=== PATIENT | female | born 2000 | race Caucasian/White ===

== ENCOUNTER 2021-12-19 13:17 | Outpatient (CLI) | payer BC, SELFPAY ==
[2021-12-19 17:59] LABS: Hepatitis B Surface Antigen* Negative (Negative)
[2021-12-19 18:09] LABS: HIV 1/2/P24 Combo Screen* Negative (Negative)
[2021-12-19 18:17] LABS: Hepatitis C Virus Antibody* Negative (Negative)
[2021-12-19 20:37] LABS: Chlamydia DNA Amplified* NOT DETECTED (No Detected); GC DNA Amplified* NOT DETECTED (No Detected)
[2021-12-22 00:58] LABS: Rapid Plasma Reagin (RPR) Non Reactive (Non Reactive)
[2021-12-22 04:43] LABS: Varicella-Zoster Virus Ab, IgG 90.3 IV
[2021-12-22 05:06] LABS: Rubella Antibody IgG 16.5 IU/mL
== END 2021-12-19 13:18 | disposition home or self-care (01) ==
PROVIDERS: Visit Provider Advanced Practice Midwife
DX: Z34.91 Encounter for supervision of normal pregnancy, unspecified, first trimester (principal)
CPT/HCPCS: 76817; 86592; 86703; 86762; 86787; 86803; 86850; 86900; 86901; 87086; 87340; 87491; 87591

== ENCOUNTER 2021-12-29 12:05 | Outpatient (CLI) | payer BC, SELFPAY ==
--- NOTE | 2021-12-29 12:11 | CRLHL7_ITS ---
For Patients: As a result of the Century Cures Act, medical imaging exams and procedure reports are released immediately into your electronic medical record. You may view this report before your referring provider. If you have questions, please contact your health care provider. INDICATION: FOLLOW UP RIGHT ADNEXAL AREA IN EARLY COMPARISON: 12/19/2021 TECHNIQUE: Real-time rubio-scale imaging of the pelvis was performed. FINDINGS: Single living intrauterine is present with crown-rump length 4.2 cm corresponding to an 11 week 1 day gestation. heart rate 167 beats per minute. Decidual reaction is more homogeneous on today`s exam. Corpus luteal cyst left ovary noted. No subchorionic hemorrhage. Similar appearance of right adnexal heterogeneity without excess pelvic free fluid or ectopic . IMPRESSION: Single living IUP measuring 11 weeks 1 day. Stable appearance of the right adnexa. Dictated by Anup Yates MD @ 12/29/2021 1:15:21 PM (Electronically Signed)
== END 2021-12-29 12:06 | disposition home or self-care (01) ==
LOC: US 12:06
PROVIDERS: Visit Provider Advanced Practice Midwife
DX: O00.81 Other ectopic pregnancy with intrauterine pregnancy (principal); Z3A.11 11 weeks gestation of pregnancy
CPT/HCPCS: 76816; 76817

== ENCOUNTER 2022-03-02 13:56 | Outpatient (CLI) | payer BC, SELFPAY ==
--- NOTE | 2022-03-02 14:00 | CRLHL7_ITS ---
For Patients: As a result of the Century Cures Act, medical imaging exams and procedure reports are released immediately into your electronic medical record. You may view this report before your referring provider. If you have questions, please contact your health care provider. INDICATION: Evaluate anatomy. COMPARISON: 12/29/2021 TECHNIQUE: Real time rubio scale imaging of the fetus was performed as well as color Doppler analysis of the umbilical vessels. FINDINGS: Sonographic imaging demonstrates a single living intrauterine gestation. Fetus demonstrates a regular cardiac rate of 152 beats per minute. Fetus has a vertex position. The placenta lies fundal without evidence of placenta previa. The edge of the placenta is located 8.2 cm from the internal cervical os. Amniotic fluid volume appears normal. Single deepest vertical pocket: 4.3 cm. The cervix is closed and measures 3.9 cm in length. The composite ultrasound gestational age is calculated at 20 weeks 2 days with an estimated sonographic due date of 07/18/2022. The estimated weight is 360 grams which lies at the 60th %. The following biometric measurements were obtained: Biparietal diameter: 4.7 cm/20 weeks 1 day 42nd% Head circumference: 17.2 cm/19 weeks 5 days 20th% Abdominal circumference: 16.3 cm/21 weeks 2 days 78th% Femur length: 3.2 cm/19 weeks 6 days 26th% The HC/AC ratio measures: 1.06 range (1.07-1.25) On anatomic survey, there is a normal appearance of the cerebral ventricles, cavum septi pellucidi, cisterna magna and cerebellum. The nose, lips, and facial profile appear normal. The cervical, thoracic and lumbar spine are well visualized and appear normal. There is a normal four-chamber heart view and the left and right ventricular outflow tracts appear normal. The diaphragm and stomach appear normal. The kidneys and bladder also appear normal. There is a normal three-vessel cord and cord insertion site. The four extremities appear normal. IMPRESSION: Normal OB ultrasound exam with concordance of clinical and sonographic dating. No intrinsic abnormalities noted on anatomic survey. Dictated by Anup Yates MD @ 03/05/2022 10:13:50 AM (Electronically Signed)
== END 2022-03-02 13:57 | disposition home or self-care (01) ==
LOC: US 13:57
PROVIDERS: Visit Provider Advanced Practice Midwife
DX: Z34.92 Encounter for supervision of normal pregnancy, unspecified, second trimester (principal); Z3A.09 9 weeks gestation of pregnancy
CPT/HCPCS: 76805

== ENCOUNTER 2022-05-04 10:48 | Outpatient (CLI) | payer BC, SELFPAY ==
[2022-05-06 03:14] LABS: Rapid Plasma Reagin (RPR) Non Reactive (Non Reactive)
== END 2022-05-04 10:49 | disposition home or self-care (01) ==
PROVIDERS: Visit Provider Advanced Practice Midwife
DX: Z34.83 Encounter for supervision of other normal pregnancy, third trimester (principal); Z3A.29 29 weeks gestation of pregnancy
CPT/HCPCS: 86592; 86850

== ENCOUNTER 2022-06-28 11:29 | Outpatient (CLI) | payer BC, SELFPAY ==
[2022-06-29 15:45] LABS: Strep B DNA Probe NEGATIVE (Negative)
[2022-06-30 20:15] LABS: Strep B Pen/Amox Allergy No
== END 2022-06-28 11:30 | disposition home or self-care (01) ==
LOC: NFLDREF 11:29
PROVIDERS: Visit Provider Advanced Practice Midwife
DX: Z34.83 Encounter for supervision of other normal pregnancy, third trimester (principal); Z3A.37 37 weeks gestation of pregnancy
CPT/HCPCS: 87081; 87653

== ENCOUNTER 2022-07-06 04:08 | Inpatient (IN) | payer BC, MEDICAID, SELFPAY ==
[2022-07-05 23:08] VITALS: BP 106/69; PULSE 93; RESP 16; TEMP 36.6
[2022-07-05 23:16] VITALS: PULSE 134; O2SAT 79
[2022-07-05 23:17] VITALS: PULSE 91; O2SAT 96
[2022-07-05 23:24] VITALS: BMI 29.2
[2022-07-06] VITALS (21 sets, daily range): BP systolic 101–117; BP diastolic 55–75; PULSE 70–109; RESP 16–18; TEMP 36.3–37.1; O2SAT 96–97
--- NOTE | 2022-07-06 05:13 | P.LDBA_ITS ---
Subjective History of Present Illness Narrative: Gloria is being admitted to Labor and Delivery for spontaneous active labor. She is a 22 year old at weeks gestation. She arrived to triage last evening, has been observed in hospital and not admitted until now due to slow change. Currently uncomfortable with contractions and planning to get in the tub. H&P completed 06/29/22 by Yefri Ramirez CNM OB PROBLEM LIST 1. Blood Type A Negative NEEDS RhoGAM at 28 weeks given 05/04/22 NEEDS RhoGAM pp 2. Varicella non-immune Needs vaccine pp 3. Suspicious round area rt. adnexa separate from rt. ovary 2.6cm Unchanged with follow-up US. No concern for ectopic. Not noted on anatomy scan, consider follow-up OB - Problem Based A/P Additional Plan (1) Pain during labor: Status: Acute (2) Rh negative status during : Status: Acute (3) 38 weeks gestation of : Status: Acute Plan ASSESSMENT:? 22yo at 38.2 weeks gestation? complicated by:?A negative blood type Labor type: spontaneous, active labor? Category 1 FHR pattern.?? Labor complicated by: none? GBS negative? ? PLAN:? 1. Routine intrapartum cares as ordered. Continue with expectant management? 2. Monitoring per policy, intermittent? 3. Planning unmedicated . Desires water . Consent signed. Hep C negative. Candidate for analgesia of choice.?? 4. Patient encouraged to reposition and ambulate to promote physiologic labor and .? 5. Anticipate ? Delivery/Labor/Induction Plan Plan: expectant management OB Exam Physical Exam Vital signs: Temp Pulse Resp BP Pulse Ox 98 F 103 H 16 102/69 96 07/05/22 23:08 07/06/22 03:33 07/05/22 23:08 07/06/22 03:33 07/05/22 23:17 Narrative: Labor admit exam? Vitals Reviewed? Psychiatric:? Alert and oriented x3? HEENT:? Normocephalic, atraumatic? Neck:? Supple?? Lungs:? Clear to auscultation bilaterally? Heart:? Regular rate and rhythm, no murmur, rub or gallop? Abdomen:? Soft, nontender, and gravid. Vertex by Todd's, confirmed with cervi kilo exam per RN.? Extremities:? No edema or erythema? Detailed Labor and Delivery Exam Patient Gravid: Yes Dilation (cm): 6 Effacement (%): 80 Contraction Frequency: 2-3 Tachysystole: No Contraction intensity: Strong/Firm Fetus (Single) Station: -1 Amniotic Membrane Status: intact Heart Rate Baseline: 140 Monitor Accelerations: Present Monitor Decelerations: None Custodial Variability: Moderate (6-25)
[2022-07-06 05:20] LABS: SARS PCR* Negative SARS-CoV-2 (Negative)
[2022-07-06] MEDS: OXYTOCIN 10 UNIT/ML INJ IM (08:36)
--- NOTE | 2022-07-06 09:05 | PM.OBPRCVD ---
Procedure Delivery date: 07/06/22 Procedure Done: Global Procedure Details: Gloria is a 22 year-old G3 now P3 admitted on 07/05/22 at 38 Weeks, 1 Days gestation for active labor. Cervical exam on admission was 6 cm/80 % effaced/-1 station with membranes intact in vertex presentation.? AROM?occurred on 07/06/22 at 0642 with clear fluid. Labor Analgesia:? none Pitocin:? No, PP only for AMTSL Labor onset:? 399 Complete: 821 Pushing:? 816, spontaneous heart tones during second stage were: WNL per doppler Tootie had been laboring in and out of the waterbirth tub, and had gotten out for a little bit when she started to feel pushy, and returned to the tub. She was supported by her Jonathan. She labored in multiple positions in the tub and began spontaneously pushing. After several pushes, Gloria stated she did not feel like anything was happening and did not feel the urge to push. Cervical check identified an anterior cervical lip, which was manually reduced during the next two contractions. Gloria pushed with good effort and delivered her baby boy in semi-reclined position in the tub. At 0831 a viable male delivered in vertex OA presentation over an intact perineum via spontaneous vaginal?delivery in the tub. ?Infant was placed on maternal abdomen. ?Cord was clamped and cut after pulsations ceased. Nose and mouth were bulb suctioned.?Infant weight pending. ? 8 at 1 minute and 9 at 5 minutes. ?Shoulder dystocia: no. ?Nuchal cord: no. Placenta delivered spontaneously and complete at 0848 with a 3 vessel cord. Mother and were stable after?delivery. Lacerations:? Labial abrasions only, not bleeding, not repaired. Blood loss: 450 mL. Blood loss measurement type:? EBL Sponge and needles counts are correct. Intrapartal Events: Labor Augmentation (AROM) Delivery augmentation: rupture of membranes Delivery monitor: external FHT (doppler) Route of delivery: (waterbirth) Laceration description: Superficial (labial abrasions, not bleeding, not repaired) Estimated blood loss (mL): 450 Anesthesia type: None Disposition: floor [place] Infant Gender: Male presentation: vertex Placental Delivery Description: Spontaneous Cord Description: 3 Vessels OB Vag Delivery Procedures Additional Procedures ECV: No Cook Catheter Insertion: No NST: No D&C: No Laceration Repair: No Tubal Ligation : No Other: No
[2022-07-06] MEDS: ACETAMINOPHEN 500 MG TABLET 1000 MG PO ×2 (09:27→18:19)
[2022-07-06] MEDS: IBUPROFEN 600 MG TABLET PO (13:14)
[2022-07-07 05:00] VITALS: BP 91/63; PULSE 76; RESP 16; TEMP 36.7; O2SAT 97
[2022-07-07 06:50] LABS: Hemoglobin* 12.8 gm/dL (12.0-16.0)
[2022-07-07 08:28] VITALS: BP 102/62; PULSE 70; RESP 16; TEMP 36.8; O2SAT 98
[2022-07-07] MEDS: DOCUSATE SODIUM 100 MG CAPSULE PO (08:44)
--- NOTE | 2022-07-07 09:29 | P.DS_ITS ---
DS: Providers Provider Date Seen: 07/07/22 Date of admission: 07/06/22 04:08 Primary care physician: Not a Local Provider Admitting Clinician: Caroline Hansen CNM Attending Physician on discharge: Sarah Ramirez CNM Date of Discharge: 07/07/22 DS: Diagnosis Discharge Diagnosis (1) state: Status: Acute (2) Lactating mother: Status: Acute Exam Narrative: Exam Narrative: Objective: VSS, afebrile GENERAL APPEARANCE: ?normal affect, alert, no distress MOOD: ?appropriate HEENT: normocephalic, neck supple, full ROM CHEST: ?Symmetrical chest wall movement. ?Normal respiratory effort. ?Clear to auscultation HEART: ?regular rate and rhythm ABDOMEN: ?soft, non-tender. Uterine fundus is firm, at Umbilicus, Midline and is appropriate for the stage of recovery. ?Bowel sounds present. PERINEUM: Deferred per pt, no lacerations or repairs EXTREMITIES: ?normal and no edema Const: Vital Signs, click to edit/add: Vital Signs - 24 hr 07/06/22 09:35 07/06/22 09:49 07/06/22 10:05 Temperature Pulse Rate 96 86 81 Pulse Rate [Pulse Oximeter] Respiratory Rate Blood Pressure 107/55 L 101/59 L 117/62 Blood Pressure [Le ft Arm] Pulse Oximetry Oxygen Delivery [facility] 07/06/22 10:19 07/06/22 10:34 07/06/22 09:35 Temperature 98.6 F Pulse Rate 85 81 Pulse Rate [Pulse Oximeter] Respiratory Rate 18 Blood Pressure 110/60 104/56 L Blood Pressure [Le ft Arm] Pulse Oximetry Oxygen Delivery [facility] 07/06/22 09:48 07/06/22 10:04 07/06/22 10:20 Temperature 98.1 F 98.3 F Pulse Rate Pulse Rate [Pulse Oximeter] Respiratory Rate 16 16 16 Blood Pressure Blood Pressure [Le ft Arm] Pulse Oximetry [facility] 07/06/22 10:34 07/06/22 13:17 07/06/22 18:21 Temperature 98.3 F 97.7 F 97.4 F L Pulse Rate Pulse Rate [Pulse Oximeter] 85 70 Respiratory Rate 16 16 16 Blood Pressure Blood Pressure [Le ft Arm] 105/75 101/64 Pulse Oximetry 96 96 Oxygen Delivery Dc thod Room Air Room Air 07/06/22 20:55 07/06/22 23:40 07/07/22 05:00 Temperature 98.6 F 98.0 F 98.1 F Pulse Rate Pulse Rate [Pulse Oximeter] 70 78 76 Respiratory Rate 16 16 16 Blood Pressure Blood Pressure [Le ft Arm] 111/65 104/63 91/63 Pulse Oximetry 97 97 97 Oxygen Delivery Me thod Room Air Room Air Room Air 07/07/22 08:28 Temperature 98.2 F Pulse Rate Pulse Rate [Pulse Oximeter] 70 Respiratory Rate 16 Blood Pressure Blood Pressure [Le ft Arm] 102/62 Pulse Oximetry 98 Oxygen Delivery Me thod Room Air Documenting provider has reviewed patient's vital signs: yes OB - DS: Summary Hospital Course Hospital Course: Subjective: Gloria is a 22 y.o. G3 now P3 who was admitted to L & D for active labor. ?She had an uncomplicated spontaneous vaginal delivery. The patient feels well. ?The pain is well controlled with current medications. ?She has no new complaints. ?She is breast feeding and reports things are going well.? the patient has done well.? Vitals have been stable.? She has remained afebrile.? Has a good appetite, is tolerating a general diet. ?She is voiding without difficulty.? She is passing gas and has not had a bowel movement.? She is ambulating and denies any dizziness.? Has a small amount of rubra lochia. ?She is planning natural family planning for prevention. Declines any medications to go home with. Assessment: G3 now P3 Lactating Mother plan: Discharge home with baby. Follow up in 2 weeks and 6 weeks in clinic. , may follow up with if needed Peripartum Data delivery method: Vaginal Laceration description: Superficial (Abrasions, not repaired) complications: none Infant Gender: Male (Miles) Discharge Plan: Home Time Spent with Patient Time attestation: Total time spent providing and/or coordinating discharge services: Discharge Plan Discharge Disposition: Home, Self-Care Date of Admission: 07/06/22 04:08 Attending Provider on Discharge: Sarah Ramirez Primary Care Provider: Provider,Not a Local Condition: Stable Anticipated Discharge Date/Time: 07/07/22 09:36 Discharge Medications: Continued with DHA-Folic Acid 400-32.5 mcg-mg tablet,chewable 1 tab PO DAILY Discharge Orders: Discharge Order (Routine); Ordered 07/07/22 Ordered By: Sarah Ramirez Patient Education: OB Over the Counter Medication Information, OB Vaginal/Breast Feeding Additional Instructions: 2 & 6 week visit Activity Level: No Restrictions Discharge Diet: Regular Follow Up Appointments: [facility] [Provider Group] Provider,Not a Local [Primary Care Provider] - Forms: [employer] Info Instructions
== END 2022-07-07 11:00 | disposition home or self-care (01) | DRG 560 ==
LOC: OB OUT 07-18 10:26
PROVIDERS: Advanced Practice Midwife; Admitting Provider Advanced Practice Midwife; Visit Provider Advanced Practice Midwife
DX: O36.0930 Maternal care for other rhesus isoimmunization, third trimester, not applicable or unspecified (principal); Z67.91 Unspecified blood type, Rh negative; Z3A.38 38 weeks gestation of pregnancy; Z37.0 Single live birth
CPT/HCPCS: 36415; 85018; 87635; 99213; A9270; J2590

== ENCOUNTER 2022-10-29 11:02 | Outpatient (CLI) | payer BC, SELFPAY | END 2022-10-29 11:03 | disposition home or self-care (01) | PROVIDERS: Visit Provider Obstetrics & Gynecology | DX: R10.9 Unspecified abdominal pain (principal); N91.2 Amenorrhea, unspecified | CPT/HCPCS: 80076; 82150; 83690 ==

== ENCOUNTER 2022-11-02 09:07 | Outpatient (CLI) | payer BC, SELFPAY ==
--- NOTE | 2022-11-02 09:15 | CRLHL7_ITS ---
For Patients: As a result of the Century Cures Act, medical imaging exams and procedure reports are released immediately into your electronic medical record. You may view this report before your referring provider. If you have questions, please contact your health care provider. CLINICAL HISTORY: Pain TECHNIQUE: 2D rubio scale ultrasound. In addition color Doppler and spectral Doppler analysis was performed of the pelvis using a transabdominal and transvaginal approach. FINDINGS: On transvaginal imaging, the myometrium has a normal uniform echotexture. The uterus measures 7.9 x 3.6 x 5.7 cm. The endometrial lining appears normal and measures 6 mm in thickness. The right ovary measures 3.8 x 2.1 x 2.8 cm in size and the left ovary measures 3.7 x 1.9 x 2.6 cm. The ovaries demonstrate normal arterial and venous blood flow on color Doppler and spectral Doppler analysis. There are no suspicious fluid collections within the cul-de-sac. IMPRESSION: Normal ovaries. No adnexal mass, excess free-fluid or torsion. Dictated by Anup Yates MD @ 11/02/2022 2:18:25 PM (Electronically Signed)
--- NOTE | 2022-11-02 09:15 | CRLHL7_ITS ---
For Patients: As a result of the Century Cures Act, medical imaging exams and procedure reports are released immediately into your electronic medical record. You may view this report before your referring provider. If you have questions, please contact your health care provider. INDICATION: Pain TECHNIQUE: Ultrasound abdomen limited. Sonographic images of the right upper quadrant were obtained using rubio-scale and color Doppler images. COMPARISON: None FINDINGS: Liver: Normal in size and echotexture. No masses. No intrahepatic biliary dilatation. Gallbladder: No stones or sludge. Normal wall thickness. No pericholecystic fluid. Common bile duct: 3.6. Pancreas: Normal. Right kidney: 10.2 cm. Normal echotexture and cortex. No masses, stones, or hydronephrosis. Vasculature: Proximal abdominal aorta and IVC are normal. IMPRESSION: Unremarkable right upper quadrant ultrasound. Dictated by Anup Gomez MD @ 11/02/2022 10:32:48 AM (Electronically Signed)
== END 2022-11-02 09:08 | disposition home or self-care (01) ==
LOC: US 09:09
PROVIDERS: Visit Provider Obstetrics & Gynecology
DX: R10.9 Unspecified abdominal pain (principal); R10.2 Pelvic and perineal pain
CPT/HCPCS: 76705; 76830; 76856; 93976

== ENCOUNTER 2023-06-20 08:38 | Outpatient (CLI) | payer BC, SELFPAY ==
--- NOTE | 2023-06-20 08:45 | CRLHL7_ITS ---
For Patients: As a result of the Cures Act, medical imaging exams and procedure reports are released immediately into your electronic medical record. You may view this report before your referring provider. If you have questions, please contact your health care provider. INDICATION: First trimester scan, establish dates. COMPARISON: None. TECHNIQUE: Real-time rubio-scale imaging of the pelvis was performed. FINDINGS: Sonographic imaging demonstrates a single living intrauterine gestation. The embryo demonstrates a regular cardiac rate measuring 154 beats per minute. The embryo`s crown-rump length measurement of 1.6 cm corresponds to a gestational age of 8 weeks 0 days with a sonographic due date of 01.30.24. There is a normal-appearing yolk sac. There are no gross abnormalities noted within the embryo at this early state of development. The gestational sac has a normal appearance. There is no evidence of a perigestational hemorrhage. The amount of fluid within the sac appears appropriate for gestational age. The cervix is closed. The myometrium appears normal. The ovaries are of normal size. Corpus luteal cyst left ovary. There are no suspicious fluid collections noted in the cul-de-sac. IMPRESSION: Normal first trimester OB ultrasound exam. Gestational age calculated at 8 weeks 0 days with a sonographic due date of 01.30.24. Dictated by Anup Yates MD @ 06/20/2023 10:21:22 AM (Electronically Signed)
== END 2023-06-20 08:39 | disposition home or self-care (01) ==
PROVIDERS: Visit Provider Advanced Practice Midwife
DX: Z34.91 Encounter for supervision of normal pregnancy, unspecified, first trimester (principal); Z3A.08 8 weeks gestation of pregnancy
CPT/HCPCS: 76817; 86703; 86706; 86803; 86850; 86900; 86901; 87086; 87340

== ENCOUNTER 2023-06-20 09:50 | Outpatient (CLI) | payer BC, SELFPAY | END 2023-06-20 09:51 | disposition home or self-care (01) | PROVIDERS: Visit Provider Advanced Practice Midwife | DX: Z34.81 Encounter for supervision of other normal pregnancy, first trimester (principal) | CPT/HCPCS: 86592; 86703; 86704; 86706; 86762; 86787; 86803; 86850; 86900; 86901; 87086; 87340 ==

== ENCOUNTER 2023-08-14 10:13 | Outpatient (CLI) | payer BC, SELFPAY | END 2023-08-14 10:14 | disposition home or self-care (01) | LOC: NFLDREF 10:15 | PROVIDERS: Visit Provider Advanced Practice Midwife | DX: Z34.92 Encounter for supervision of normal pregnancy, unspecified, second trimester (principal); Z3A.16 16 weeks gestation of pregnancy | CPT/HCPCS: 87086 ==

== ENCOUNTER 2023-09-10 13:52 | Outpatient (CLI) | payer BC, SELFPAY ==
--- NOTE | 2023-09-10 14:00 | US_ITS ---
Patient: JULI Castillo TOLEDO Facility:?[facility] Patient ID:?[id number] Site Patient ID:?[id number]. Site :?[id number] Study:?US-OB Pelvis OB > 14wks-09/10/2023 3:18:45 PM Ordering Physician:Terri Rondon Final Report: OB ULTRASOUND LMP: 04/21/2023. ANNABELLE by LMP: 01/26/2024. GA: 20 w, 2 d. . P: 3. INDICATION: Supervision of normal . COMPARISON: 06/20/2023. position: Multiple positions. Cervix: Visualized. Technique: Transabdominal. Length of closed cervix: 3.3 cm. Placenta/cord: Posterior. Technique: Transabdominal. Placenta tip to internal OS: 8.2 cm. Umbilical Cord: 3-vessel cord. Placenta insertion: Central. Amniotic Fluid: 4.5 cm SDP SURVEY: Observed Structures Cerebellum: Yes. 2.03 cm; 20 w 5 d. Cisterna Magna: Yes. 4.7 mm. Nuchal Fold: Yes. 3.7 mm. Lateral Ventricle: Yes. 5.8 mm. CSP: Yes. Midline Falx: Yes. Choroid Plexus: Yes. Spine: Yes. Stomach: Yes. Abd Cord Insertion: Yes. Urinary Bladder: Yes. Kidneys: Yes. Diaphragm: Yes. Nose/lips: Yes. Orbital view: Yes. Profile: Yes. Upper Extremities: Yes. Lower Extremities: Yes. Hands: Yes. Feet: Yes. Four-Chamber Heart: Yes. LVOT: Yes. RVOT: Yes. 3VV: Yes. 3VTV: Yes. BPD: 4.7 cm. 20 w, 2 d, 48 percent. HC: 17.6 cm. 20 w, 1 d, 33 percent. AC: 16.0 cm. 21 w, 0 d, 70 percent. FL: 3.4 cm. 20 w, 3 d, 50 percent. FL/AC ratio: 21.00 percent. HC/AC ratio: 1.10. Heart rate: 155 beats per minute. age by this US: 20 w 4 d. ANNABELLE by this US: 01/24/2024. EFW: 372.4 g. Weight: 0 lbs, 13 oz. Percentile by ANNABELLE: 70th percent. IMPRESSION: 1. Measurements are consistent with dates. Good interval growth since the prior exam. 2. Normal anatomic survey. Randy Velasquez M.D. Body/Diagnostic Radiologist [email or web address] D& Transcribed: 2:30 p.m. SP/Dictated by: Randy Velasquez MD @ 09/11/2023 9:53:00 AM Signed by:Delano Velasquez MD @09/11/2023 4:47:35 PM (Electronic Signature)
== END 2023-09-10 13:53 | disposition home or self-care (01) ==
LOC: US 13:53
PROVIDERS: Visit Provider Advanced Practice Midwife
DX: Z34.92 Encounter for supervision of normal pregnancy, unspecified, second trimester (principal); Z3A.20 20 weeks gestation of pregnancy
CPT/HCPCS: 76805

== ENCOUNTER 2023-11-06 10:32 | Outpatient (CLI) | payer BC, SELFPAY | END 2023-11-06 10:33 | disposition home or self-care (01) | LOC: NFLDREF 10:33 | PROVIDERS: Visit Provider Advanced Practice Midwife | DX: Z34.83 Encounter for supervision of other normal pregnancy, third trimester (principal); Z67.11 Type A blood, Rh negative | CPT/HCPCS: 86592; 86850; J2791 ==

== ENCOUNTER 2023-11-13 10:38 | Emergency (ER) | payer BC, SELFPAY ==
[2023-11-13 10:42] VITALS: BP 103/65; PULSE 82; RESP 18; TEMP 36.9; O2SAT 98; BMI 29.1
--- OUTSIDE RECORDS SUMMARY | 2023-11-13 11:26 | XMS_ITS | Clinical Summary ---
Author Organization [facility] Address [address], [place] [address] Care Team Providers Care Semiautomatic Taper Operator Name Role Phone Clinician, Not Found MD Primary Care Provider Un available Source Comments You are receiving this document as you are listed as the primary care provider,follow-up provider, or the patient has been referred to you for consultation.This is in compliance with the Medicare and[facility] EHR Incentive Program,which states Providers who transition their patient to another setting of careor provider of care or refers their patient to another provider of care shouldprovide summary care record for each transition of care or referral. [facility] Allergies No known active allergies Medications No known medications Active Problems No known active problems Family History Medical History Relation Name Comments Cancer Maternal Grandfather Clotting Disorder Paternal Grandfather Cancer Paternal Grandmother Relation Name Status Comments Maternal Grandfather Paternal Grandfather Paternal Grandmother Social History Tobacco Use Types Packs/Day Years Used Date Smoking Tobacco: Never Alcohol Use Standard Drinks/Week Comments No 0 (1 standard drink = 0.6 oz pur e alcohol) Sex and Gender Information Value Date Recorded Sex Assigned at Not on file Gender Identity Not on file Sexual Orientation Not on file Last Filed Vital Signs Vital Sign Reading Time Taken Comments Blood Pressure - - Pulse - - Temperature - - Respiratory Rate - - Oxygen Saturation - - Inhaled Oxygen Concentration - - Weight 74.4 kg (164 lb) 11/26/2013 10:03 AM CDT Height 181.6 cm (5' 11.5) 11/26/2013 10:03 AM C DT Body Mass Index 22.55 11/26/2013 10:03 AM CDT Plan of Treatment Health Maintenance Due Date Last Done Comments Cervical Cancer Screening Due 1998 Chlamydia 1998 Hep C Screening (Preventive Services) 1998 HPV Vaccine (1 - 3-dose series) 2013 HIV Screening (Preventive Services) 2014 Adult Preventive Visit 02/26/2016 DTaP/Tdap/Td (1 - Tdap) 2017 HepB (1) 2017 COVID-19 Vaccine (1 - 2022-2 4 season) 2023 Influenza (Season Ended) 2024 Zoster/Shingles (1 of 2) 02/26/2048 HepA Aged Out No longer eligi ble based on patient's age to complete this topic Hib Aged Out No longer eligi ble based on patient's age to complete this topic IPV (Polio) Aged Out No longer eligi ble based on patient's age to complete this topic MCV4 Aged Out No longer eligi ble based on patient's age to complete this topic Pneumococcal Aged Out No longer eligi ble based on patient's age to complete this topic Care Teams Semiautomatic Taper Operator Relationship Specialty Start Date End Date Clinician, Not Found, [place] [address] PCP - General 06/08/13
--- OUTSIDE RECORDS SUMMARY | 2023-11-13 11:26 | XMS_ITS | Clinical Summary ---
Author Organization [employer] [facility] Address [place], [place] [address] Care Team Providers Care Compliance Paralegal Name Role Phone Clinic, No Pcp Or Primary Care Provider Unavaila ble Allergies No known active allergies Medications Medication Sig Dispensed Refills Start Date End Date Status PNV no.95/ferrous fum/folic ac (PNV CMB#95-FERROUS FUMARATE-FA ORAL) Take 1 Tablet by mouth once daily. Active ondansetron (ZOFRAN ODT) 4 mg disintegrating tabletIndications:Nause a Place 2 Tablets (8 mg) on the tongue every 8 hours if needed for Nausea/Vomiting . 10 Tablet 01/19/2023 Active Active Problems Problem Noted Date Diagnosed Date Right tubal withou t intrauterine --possible, unable to r/o 11/13/2021 Gastroenteritis 11/13/2021 Acute appendicitis--ruled out 11/12/2021 Less than 8 weeks gestation of 022 Type A blood, Rh negative 10/24/2018 39 weeks gestation of 10/22/2018 Full-term premature rupture of membranes 019 Anemia 10/22/2018 Positive GBS test 10/22/2018 Overweight 04/30/2018 Sprain of lateral collateral ligament of knee Resolved Problems Problem Noted Date Diagnosed Date Resolved Date complication before 10/14/2018 10/24/2018 Immunizations Name Administration Dates Next Due AMB INFLUENZA, IIV4 (AGE=>6M OS) MDV (Flu Clinic Only) 04/30/2018 DTaP 01/07/2004, 0,1998,07/07,1998 HIB PRP-T (ActHIB,Hiberix) 06/23/1999,,1998,05/02 Hepatitis A (Adult) 04/18/2010 Hepatitis A (Peds) 04/08/2013,04/18/2010 Hepatitis A (Peds),Unspecified 04/18/2010 Hepatitis B (Peds) 03/15/1999,1998, 998 Hepatitis B, Unspecified 03/15/1999,1998,1 07/03/1997 Inactivated Polio Vaccine 01/07/2004,,1998,05/02 Influenza Virus, Unspecified 04/09/2007,05/03/20 03 Influenza, IIV4 04/30/2018 MMR 01/07/2004,03/29/1999 Meningococcal Vaccine (Menactra) 02/03/2016,03/22 Tdap 08/06/2018,04/18/2010 Family History Medical History Relation Name Comments Good Health Brother 1 Good Health Brother 2 Good Health Brother 3 Good Health Brother 4 Good Health Daughter Good Health Father Lung cancer Maternal Grandfather Good Health Maternal Grandmother Good Health Mother Lung cancer Paternal Grandfather Cancer-breast Paternal Grandmother Good Health Sister 1 Good Health Sister 2 Relation Name Status Comments Brother 1 Alive Brother 2 Alive Brother 3 Alive Brother 4 Alive Daughter Alive Father Alive Maternal Grandfather (Age 65) Barby ng cancer Maternal Grandmother Alive Mother Alive Paternal Grandfather (Age 70) barby ng cancer Paternal Grandmother (Age 55) Br east cancer Sister 1 Alive Sister 2 Alive Social History Tobacco Use Types Packs/Day Years Used Date Smoking Tobacco: Never Smokeless Tobacco: Never Alcohol Use Standard Drinks/Week Comments Not Currently 0 (1 standard drink = 0.6 oz pur e alcohol) PHQ-2 Answer Date Recorded PHQ-2 TOTAL SCORE 0 05/23/2020 Social Connections Answer Date Recorded Frequency of Communication with Friends and Fami ly Not on file 05/20/2021 Financial Resource Strain Answer Date R ecorded Difficulty of Paying Living Expenses Not on file 05/20/2021 Difficulty of Paying Living Expenses Not on file 05/20/2021 Sex and Gender Information Value Date Recorded Sex Assigned at Not on file Gender Identity Not on file Sexual Orientation Not on file Obstetrics History Para Term AB IAB SAB Ectopic Multiple Livin g Live Births 3 2 2 2 2 Date Outcome GA Total Labor Labor/2nd/3rd Weight Sex Type Anes PTL Dot A1 A5 Name Clin 2018 Term 39w 1d 18h 00m 0h 02m 3.37 kg (7 lb 7 oz) F Vag Epidur al Livin g 8 9 BG JULI BANUELOS Complications:None Delivery Location:[facility]) Comments:15 min of pus aleksandra 2020 Term F Vag Livin g Last Filed Vital Signs Vital Sign Reading Time Taken Comments Blood Pressure 120/64 01/19/2023 9:31 PM CDT Pulse 69 01/19/2023 9:31 PM CDT Temperature 36.8 ??C (98.2 ??F) 01/19/2023 9:31 PM CD T Respiratory Rate 18 01/19/2023 9:31 PM CDT Oxygen Saturation 97% 01/19/2023 9:31 PM CDT Inhaled Oxygen Concentration - - Weight 77.1 kg (170 lb) 01/19/2023 9:31 PM CDT Height 177.8 cm (5' 10) 01/19/2023 9:31 PM CDT Body Mass Index 24.39 01/19/2023 9:31 PM CDT Plan of Treatment Health Maintenance Due Date Last Done Comments HPV series for age 9-26 (1 - 3-dose series) 2013 Depression screening for age 12+ 05/23/2021 05/23/2020 BMI (ht and wt on same day) for age 18+ 03/15/2022 03/15/2021, 05/23/2020 COVID-19 vaccine series ( season) 2023 Pap test for age 21-65 05/23/2023 05/23/2020 Influenza for age 9-49 01/19/2024 8, 04/30/2018, 04/09/2007, Additional history exists Tetanus booster 08/06/2028 08/06/2018, 04/18/2010 Tdap Completed 08/06/2018, 04/18/2010 HIV for age 15-65 Completed 05/23/2020 Hepatitis C screening for age 18-79 Completed 05/23/2020 Pneumococcal series for age 6-64 Aged Out No longer eligible based on patient's age to complete this topic Procedures Procedure Name Priority Date/Time Associated Diagnosis Comments ANTI HIV 1/2 Routine 05/23/2020 11:30 AM EVENT MARKETING ASSISTANT Encounter for supervision of low-risk , antepartum ANTI HCV Routine 05/23/2020 11:30 AM EVENT MARKETING ASSISTANT Encounter for supervision of low-risk , antepartum CONTROLS DESIGN ENGINEER THIN PREP PAP SCREEN IMAGED Routine 05/23/2020 10:55 AM EVENT MARKETING ASSISTANT Cervical cancer screening from Last 3 Months or Most Recently Relevant to Health Maintenance Results * ANTI HCV (05/23/2020 11:30 AM EVENT MARKETING ASSISTANT) HEPATITIS C ANTIBODY Non-React audra Non-React audra 05/23/2020 7:27 PM EVENT MARKETING ASSISTANT [facility] Comment:Antibodies to HCV no t detected; does not exclude the possibility of exposure to HCV. Blood BLOOD SPECIMEN / Unknown Venipuncture / Unknown 05/23/2020 11:30 AM EVENT MARKETING ASSISTANT 05/23/2020 11:32 AM EVENT MARKETING ASSISTANT Michelle Lin MD [facility] [address] [place] [address], * ANTI HIV 1/2 (05/23/2020 11:30 AM EVENT MARKETING ASSISTANT) HIV-1/HIV-2 ANTIBODY Non-Reacti ve Non-Reacti ve 05/23/2020 7:47 PM EVENT MARKETING ASSISTANT [facility] Comment:HIV-1 p24 and HIV-1/ HIV-2 Ab not detected. Blood BLOOD SPECIMEN / Unknown Venipuncture / Unknown 05/23/2020 11:30 AM EVENT MARKETING ASSISTANT 05/23/2020 11:32 AM EVENT MARKETING ASSISTANT Michelle Lin MD SEND OUTS [facility] LABORAT[facility]-CENTRAL LABORATORY [address] [place] [address], * CONTROLS DESIGN ENGINEER THIN PREP PAP SCREEN IMAGED (05/23/2020 10:55 AM EVENT MARKETING ASSISTANT) Case Report Gynecologic Cytology Report ? Case: [id number] ? Authorizing Provider: ??Michelle Lin MD ??Collected: ? 05/23/2020 1055 ? Ordering Location: ? [facility] ?Received: ?05/23/2020 1214 ? Clinic ? First Screen: ?Gallo Hanson ? Specimen: ?CONTROLS DESIGN ENGINEER ThinPrep Vial Screening, Cervical ? 05/31/2020 12:20 PM EVENT MARKETING ASSISTANT [employer] [facility] LABORAT[facility]-C ENTRAL LABORATORY INTERPRETATION/ RESULT NEGATIVE FOR INTRAEPITHELIAL LESION OR MALIGNANCY (NIL) (none) 05/31/2020 12:20 PM EVENT MARKETING ASSISTANT [facility] LAB[facility] IMEN ADEQUACY Satisfactory for evaluation No endocervical component seen in a patient 05/31/2020 12:20 PM EVENT MARKETING ASSISTANT [facility]- ENTRAL LABORATORY HPV REQUEST HPV if ASCUS 05/31/2020 12:20 PM EVENT MARKETING ASSISTANT [facility] Date of LMP 03/04/2020 05/31/2020 12:20 PM EVENT MARKETING ASSISTANT [facility] Last Pap Date none 05/31/2020 12:20 PM EVENT MARKETING ASSISTANT [facility] Last Pap Result First Pap/Unknown 12:20 PM EVENT MARKETING ASSISTANT [facility] Abnormal Pap or [place] Bx in last 5 years No 05/31/2020 12:20 PM EVENT MARKETING ASSISTANT [facility]- ENTRAL LAB[facility]ATORY Menstrual Status 05/31/2020 12:20 PM EVENT MARKETING ASSISTANT [facility] EN[facility] [place] Bx Done Today No 05/31/2020 12:20 PM EVENT MARKETING ASSISTANT [facility] Additional Information None given 05/31/2020 12:20 PM EVENT MARKETING ASSISTANT [facility] Comment: Cytology is screened at [facility], Central Laboratory - [address] [facility] [address], [place] [address] and [facility] - [address] [place] [place] [address] [facility] - [address] [place] [address] [id number] [facility] - [address] [place] [address] Automated Review Successful 05/31/2020 12:20 PM EVENT MARKETING ASSISTANT [facility] Comment:Specimen processed s uccessfully by automated sand tester device, ThinPrep Imaging System, [employer] Note The pap test is a screening technique, not a diagnostic procedure. It is used primarily to screen for squamous cancers and precursor lesions. Published studies have shown that it is subject to both false negative and false positive results. The pap test should not be used as the sole means to diagnose or exclude pre-malignant and malignant lesions. 05/31/2020 12:20 PM EVENT MARKETING ASSISTANT [facility] LABORATORY-C ENTRAL LABORATORY Other (Cervical) Non-Blood / Unknown 05/23/2020 10:55 AM EVENT MARKETING ASSISTANT 05/23/2020 12:14 PM EVENT MARKETING ASSISTANT Michelle Lin MD PATHOLOGY/[facility]-CENTRAL LABORATORY [address] [place] [address], from Last 3 Months or Most Recently Relevant to Health Maintenance Advance Directives * Full Code (Latest Code Status on File) Date Activated Date Inactivated Comments 11/12/2021 6:04 PM 11/13/2021 7:59 PM Question Answer Comments Code Status Discussion: Reviewed Preferences * Full Code Date Activated Date Inactivated Comments 10/22/2018 2:32 PM 10/25/2018 5:10 PM Care Teams Compliance Paralegal Relationship Specialty Start Date End Date Clinic, No Pcp Or . PCP - General 01/19/23
--- NOTE | 2023-11-13 11:27 | ED_ITS ---
HPI - Fall General Chief Complaint: Fall/Minor Trauma Stated Complaint: Fall, 29wks Time Seen by Provider: 11/13/23 10:49 History of Present Illness HPI Narrative: This 23-year-old female is 29 weeks and states that she fell down some stairs about 4 hours prior to arrival. She landed on her right buttock and did not hit her abdomen. She did not hit her head or have loss of consciousness. She called into the OBGYN clinic and was instructed to come here for evaluation. She states that she did not feel the baby move for a few hours but subsequently has been feeling activity of the baby. She denies any significant personal injury but is mostly concerned about her baby in the womb. Related Data Home Medications ?Medication ?Instructions ?Recorded ?Confirmed vits no.126-ferrous fum tab PO DAILY 06/20/23 11/06/23 28 mg iron-folic acid 800 mcg tablet (Classic ) Allergies Allergy/AdvReac Type Severity Reaction Status Date / Time No Known Allergies Allergy Unknown Verified 11/06/23 09:45 Review of Systems Status of ROS: Reports: 10 or more systems reviewed and unremarkable except as noted in History and below Narrative: Constitutional: No fevers, no weight gain or loss. Eyes: No discharge. No vision changes. HENT: No congestion, no sore throat, no ear pain. Cardiovascular: No chest pain, no palpitations. Respiratory: No shortness of breath, no wheezes, no cough. Gastrointestinal: No abdominal pain, no vomiting, no diarrhea. Genitourinary: No dysuria, no hematuria. Musculoskeletal: Normal range of motion. Skin: No rashes, no pruritis. Neurological: No dizziness, weakness, sensory change, speech change. Endo/Heme/Allergies: No bruising or bleeding. No polydipsia. Pysch: no suicidality, no anxiety, no insomnia. All other systems reviewed and are negative. [facility] Medical History (Updated 11/13/23 @ 11:36 by Morris Hines MD) Abdominal pain ?R10.9 - Unspecified abdominal pain (ICD-10) Temporary low platelet count ?D69.6 - Thrombocytopenia, unspecified (ICD-10) Normal spontaneous vaginal delivery ?O80 - Encounter for full-term uncomplicated delivery (ICD-10) Surgical History H/O knee surgery ?Z98.890 - Other specified postprocedural states (ICD-10) Guffey teeth extracted ?K08.409 - Partial loss of teeth, unspecified cause, unspecified class (ICD- 10) Family History Maternal Grandfather Lung cancer Paternal Grandfather Lung cancer Social History (Updated 06/20/23 @ 11:36 by Kandis Welsh CNM) Narrative: SOCIAL Education: some college Work: stay at home, 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: Jonathan, - teacher high school Lives with: and kids Pets: none Abuse: Denies past/present Special Diet: Denies Ok with a blood transfusion: yes Culture or gnosticism beliefs: denies RISK FACTORS Exercise Times/wk: walks Depression/Anxiety: denies AMANDA: 0 PHQ 9: 2 Seat Belt Use: Routinely Smoking: Denies past/present Alcohol/day: Denies while Caffeine: 2 cups per day Drug Use: Denies past/present Chicken Pox: Yes as a child MRSA: Denies What is your current living situation?: I presently have a place to live Problems where you live: no known problems In the past 12 months, utilities in danger of being shut off: no In past 12 months, lack of transportation kept you from medical appts, meetings, work, or getting things needed for daily living: no In the past 12 mos, have been you worried that your food would run out before you had money to buy more?: never true In the past 12 mos, the food you bought just didn't last and you didn't have money to buy more?: never true Smoking Status: Never smoker How often does anyone, including family, friends and others, physically hurt you : never How often does anyone, including family, friends and others, insult or talk down to you: never How often does anyone, including family, friends and others, threaten you with harm: never How often does anyone, including family, friends and others, scream or curse at you: never Little interest or pleasure in doing things: not at all Feeling down, depressed, or hopeless: not at all Exam Narrative: Exam Narrative: Constitutional: Well-developed, well-nourished, no acute distress. HEENT: Normocephalic, atraumatic. Neck: Normal range of motion. Nontender. Supple. Heart: Regular. No murmurs. Normal rate. Intact distal pulses. Lungs: Clear to auscultation. No chest discomfort. No wheezes, rhonchi, or rales. Abdomen: Normal bowel sounds. Nontender. No rebound tenderness. Gravid. Genitalia: Deferred. Back: No midline tenderness. Normal range of motion. Extremities: Normal range of motion. No injury. Skin: Intact. No rash. Warm. No erythema or pallor. Neurologic: No altered sensation. No weakness. Alert and oriented. Psychiatric: No suicidality. No anxiety or depression. No insomnia. Nursing notes and vitals signs are reviewed. Const: Vital Signs, click to edit/add: Vital Signs - 24 hr 11/13/23 10:42 Temperature 98.4 F Pulse Rate [Right Pulse Oximeter] 82 Respiratory Rate 18 Blood Pressure [Ri ght Upper Arm] 103/65 Pulse Oximetry 98 Oxygen Delivery Me thod Room Air Course Vital Signs Vital signs: Initial Vital Signs Temperature 98.4 F 11/13/23 10:42 Temperature Source Oral 11/13/23 10:42 Pulse Rate 82 11/13/23 10:42 Pulse Rhythm Regular 11/13/23 10:42 Pulse Strength 3+ Normal 11/13/23 10:42 Respiratory Rate 18 11/13/23 10:42 Blood Pressure 103/65 11/13/23 10:42 Blood Pressure Mean 77 11/13/23 10:42 Pulse Oximetry 98 11/13/23 10:42 Oxygen Delivery Method Room Air 11/13/23 10:42 Vital Signs Temperature 98.4 F 11/13/23 10:42 Pulse Rate 82 11/13/23 10:42 Respiratory Rate 18 11/13/23 10:42 Blood Pressure 103/65 11/13/23 10:42 Pulse Oximetry 98 11/13/23 10:42 Oxygen Delivery Method Room Air 11/13/23 10:42 Temperature 98.4 F 11/13/23 10:42 Pulse Rate 82 11/13/23 10:42 Respiratory Rate 18 11/13/23 10:42 Blood Pressure 103/65 11/13/23 10:42 Pulse Oximetry 98 11/13/23 10:42 Oxygen Delivery Method Room Air 11/13/23 10:42 MDM - Fall MDM Narrative Medical decision making narrative: This patient comes in for evaluation of her 3rd trimester after falling about 4 hours prior to arrival. She fell onto her right buttock and did not hit her abdomen. She was able to get up and ambulate normally. She did call in to OBGYN clinic and was recommended to come here for evaluation. The patient arrives with normal vital signs and really is in no discomfort. Her primary goal is to have her baby checked further. She is feeling movement in her abdomen. I did use bedside ultrasound to observe her and saw normal anatomy and activity. heart tones are in normal range. There is good amniotic fluid present. This was all reassuring to the patient. She is okay to be discharged home to resume current plans. I advised her to use Tylenol if needed. Discharge Plan Discharge Clinical Impression: Fall, Third trimester Patient Disposition: Home, Self-Care Condition: Stable Additional Instructions: Continue current plans. Follow up with MD as scheduled or as needed. Return if worsening. Prescriptions: No Action Classic 28 mg iron- 800 mcg tablet PO DAILY Follow Up/Referrals: Provider,Not a Local [Primary Care Provider] - Stand Alone Forms: [employer] Info Instructions Procedures Ultrasound Other exam #1: Anatomical areas examined: 3rd trimester Indications: The mother fell but no injury to her abdomen Description/findings: Normal anatomy and activity. Heart rate is in normal range. Normal amniotic fluid. Impression: Normal 3rd trimester .
== END 2023-11-13 12:00 | disposition home or self-care (01) ==
PROVIDERS: Emergency Provider Emergency Medicine Emergency Medical Services
DX: S39.92XA Unspecified injury of lower back, initial encounter (principal); W10.9XXA Fall (on) (from) unspecified stairs and steps, initial encounter; Z3A.29 29 weeks gestation of pregnancy
CPT/HCPCS: 76815; 99283; 99284

== ENCOUNTER 2023-11-20 10:33 | Outpatient (CLI) | payer BC, SELFPAY ==
--- OUTSIDE RECORDS SUMMARY | 2023-11-20 10:36 | XMS_ITS | Clinical Summary ---
Author Organization [employer] [facility] Address [place], [place] [address] Care Team Providers Care Die Try Out Worker Name Role Phone Clinic, No Pcp Or [...] 8 9 BG JULI BANUELOS Complications:None Delivery Location:[facility]) Comments:15 min of pus aleksandra 2020 Term [...] ANTI HIV 1/2 Routine 05/23/2020 11:30 AM SUPERVISOR GRADING Encounter for supervision of low-risk , antepartum ANTI HCV Routine 05/23/2020 11:30 AM SUPERVISOR GRADING Encounter for supervision of low-risk , antepartum INSTRUCTIONAL TECHNOLOGY FACILITATOR THIN PREP PAP SCREEN IMAGED Routine 05/23/2020 10:55 AM SUPERVISOR GRADING Cervical cancer screening from Last 3 Months or Most Recently Relevant to Health Maintenance Results * ANTI HCV (05/23/2020 11:30 AM SUPERVISOR GRADING) HEPATITIS C ANTIBODY Non-React audra Non-React audra 05/23/2020 7:27 PM SUPERVISOR GRADING [facility] LABORAT[facility] Comment:Antibodies to HCV no t detected; does not exclude the possibility of exposure to HCV. Blood BLOOD SPECIMEN / Unknown Venipuncture / Unknown 05/23/2020 11:30 AM SUPERVISOR GRADING 05/23/2020 11:32 AM SUPERVISOR GRADING Michelle Lin MD [facility] [address] [place] [address], * ANTI HIV 1/2 (05/23/2020 11:30 AM SUPERVISOR GRADING) HIV-1/HIV-2 ANTIBODY Non-Reacti ve Non-Reacti ve 05/23/2020 7:47 PM SUPERVISOR GRADING [facility] TR[facility] LAB[facility]ATORY Comment:HIV-1 p24 and HIV-1/ HIV-2 Ab not detected. Blood BLOOD SPECIMEN / Unknown Venipuncture / Unknown 05/23/2020 11:30 AM SUPERVISOR GRADING 05/23/2020 11:32 AM SUPERVISOR GRADING Michelle Lin MD SEND OUTS [facility] LABORATORY-CENTRAL LABORATORY [address] [place] [address], * INSTRUCTIONAL TECHNOLOGY FACILITATOR THIN PREP PAP SCREEN IMAGED (05/23/2020 10:55 AM SUPERVISOR GRADING) Case Report Gynecologic Cytology Report ? Case: [id number] ? Authorizing Provider: ??Michelle Lin MD ??Collected: ? 05/23/2020 1055 ? Ordering Location: ? [facility] ?Received: ?05/23/2020 1214 ? Clinic ? First Screen: ?Gallo Hanson ? Specimen: ?INSTRUCTIONAL TECHNOLOGY FACILITATOR ThinPrep Vial Screening, Cervical ? 05/31/2020 12:20 PM SUPERVISOR GRADING [facility] LABORAT[facility]-C ENTRAL LABORATORY INTERPRETATION/ RESULT NEGATIVE FOR INTRAEPITHELIAL LESION OR MALIGNANCY (NIL) (none) 05/31/2020 12:20 PM SUPERVISOR GRADING [facility] ENTRAK LABORATORY IMEN ADEQUACY Satisfactory for evaluation No endocervical component seen in a patient 05/31/2020 12:20 PM SUPERVISOR GRADING [facility]- ENTRAL LABORATORY HPV REQUEST HPV if ASCUS 05/31/2020 12:20 PM SUPERVISOR GRADING [facility] EN[facility]AL LAB[facility] Date of LMP 03/04/2020 05/31/2020 12:20 PM SUPERVISOR GRADING [facility] EN[facility] LAB[facility] Last Pap Date none 05/31/2020 12:20 PM SUPERVISOR GRADING [facility] EN[facility] LAB[facility] Last Pap Result First Pap/Unknown 12:20 PM SUPERVISOR GRADING [facility] EN[facility]AL LAB[facility] Abnormal Pap or Waucoma Bx in last 5 years No 05/31/2020 12:20 PM SUPERVISOR GRADING [facility]- ENTRAL LABORATORY Menstrual Status 05/31/2020 12:20 PM SUPERVISOR GRADING [facility] ENTRAL LABORATORY Waucoma Bx Done Today No 05/31/2020 12:20 PM SUPERVISOR GRADING [facility] EN[facility] LAB[facility] Additional Information None given 05/31/2020 12:20 PM SUPERVISOR GRADING [facility] EN[facility]AL LAB[facility] Comment: Cytology is screened at [facility], Central Laboratory - [address] [facility] [address], [place] [address] [address] [facility] - [address] [place] [address] and [facility] - [address] [place] [address] Interpreted at [facility] - [address] [place] [id number] Automated Review Successful 05/31/2020 12:20 PM SUPERVISOR GRADING [facility] Comment:Specimen processed s uccessfully by automated wire drawing setter device, ThinPrep Imaging System, [employer] Note The pap test is a screening technique, not a diagnostic procedure. It is used primarily to screen for squamous cancers and precursor lesions. Published studies have shown that it is subject to both false negative and false positive results. The pap test should not be used as the sole means to diagnose or exclude pre-malignant and malignant lesions. 05/31/2020 12:20 PM SUPERVISOR GRADING [facility] LABORATORY-C ENTRAL LABORATORY Other (Cervical) Non-Blood / Unknown 05/23/2020 10:55 AM SUPERVISOR GRADING 05/23/2020 12:14 PM SUPERVISOR GRADING Michelle Lin MD PATHOLOGY/CYTOLO GY [facility] LABORATORY-CENTRAL LABORATORY [address] [place] [address], from Last 3 Months or Most Recently Relevant to Health Maintenance Advance Directives * Full Code (Latest Code Status on File) Date Activated Date Inactivated Comments 11/12/2021 6:04 PM 11/13/2021 7:59 PM Question Answer Comments Code Status Discussion: Reviewed Preferences * Full Code Date Activated Date Inactivated Comments 10/22/2018 2:32 PM 10/25/2018 5:10 PM Care Teams Die Try Out Worker Relationship Specialty Start Date End Date Clinic, No Pcp Or . PCP - General 01/19/23
--- OUTSIDE RECORDS SUMMARY | 2023-11-20 10:36 | XMS_ITS | Clinical Summary ---
Author Organization [facility] Address [address], [place] [address] Care Team Providers Care Top Polisher Name Role Phone Clinician, Not Found MD Primary Care Provider Un available Source Comments You are receiving this document as you are listed as the primary care provider,follow-up provider, or the patient has been referred to you for consultation.This is in compliance with the Medicare and[facility] E[facility] Incentive Program,which states Providers who transition [...] age to complete this topic Care Teams Top Polisher Relationship Specialty Start Date End Date Clinician, Not Found, [place] [address] PCP - General 06/08/13
--- NOTE | 2023-11-20 10:45 | CRLHL7_ITS ---
For Patients: As a result of the Century Cures Act, medical imaging exams and procedure reports are released immediately into your electronic medical record. You may view this report before your referring provider. If you have questions, please contact your health care provider. INDICATION: Asymptomatic varicose veins TECHNIQUE: Ultrasound venous duplex lower right extremity. Compression venous exam was performed using rubio-scale, color Doppler, and spectral Doppler imaging. COMPARISON: None. FINDINGS: Sonographic imaging demonstrates the right common femoral, deep femoral, superficial femoral, popliteal, posterior tibial and greater saphenous and the contralateral left common femoral veins to be fully compressible with normal color Doppler blood flow. Varicose veins at the lateral thigh which are widely patent. IMPRESSION: No evidence of deep venous thrombosis right lower extremity. Dictated by Leo Rea MD @ 11/20/2023 1:59:37 PM (Electronically Signed)
== END 2023-11-20 10:34 | disposition home or self-care (01) ==
LOC: US 10:34
PROVIDERS: Visit Provider Advanced Practice Midwife
DX: I83.90 Asymptomatic varicose veins of unspecified lower extremity (principal)
CPT/HCPCS: 93971

== ENCOUNTER 2024-01-02 10:06 | Outpatient (CLI) | payer BC, SELFPAY ==
--- OUTSIDE RECORDS SUMMARY | 2024-01-03 11:10 | XMS_ITS | Clinical Summary ---
Author Organization [facility] Address [place], [place] [address] Care Team Providers Care Customer Engagement Representative Name Role Phone Clinic, No Pcp Or [...] 8 9 BG JULI BANUELOS Complications:None Delivery Location:[facility] ([facility]) Comments:15 min of pus aleksandra 2020 [...] ANTI HIV 1/2 Routine 05/23/2020 11:30 AM POWER DIGGER OPERATOR Encounter for supervision of low-risk , antepartum ANTI HCV Routine 05/23/2020 11:30 AM POWER DIGGER OPERATOR Encounter for supervision of low-risk , antepartum CANDY CUTTER MACHINE THIN PREP PAP SCREEN IMAGED Routine 05/23/2020 10:55 AM POWER DIGGER OPERATOR Cervical cancer screening from Last 3 Months or Most Recently Relevant to Health Maintenance Results * ANTI HCV (05/23/2020 11:30 AM POWER DIGGER OPERATOR) HEPATITIS C ANTIBODY Non-React audra Non-React audra 05/23/2020 7:27 PM POWER DIGGER OPERATOR [facility] TRAL LABORATORY Comment:Antibodies to HCV no t detected; does not exclude the possibility of exposure to HCV. Blood BLOOD SPECIMEN / Unknown Venipuncture / Unknown 05/23/2020 11:30 AM POWER DIGGER OPERATOR 05/23/2020 11:32 AM POWER DIGGER OPERATOR Michelle Lin MD [facility] [address] [place] [address], * ANTI HIV 1/2 (05/23/2020 11:30 AM POWER DIGGER OPERATOR) HIV-1/HIV-2 ANTIBODY Non-Reacti ve Non-Reacti ve 05/23/2020 7:47 PM POWER DIGGER OPERATOR [facility] TRAL LABORATORY Comment:HIV-1 p24 and HIV-1/ HIV-2 Ab not detected. Blood BLOOD SPECIMEN / Unknown Venipuncture / Unknown 05/23/2020 11:30 AM POWER DIGGER OPERATOR 05/23/2020 11:32 AM POWER DIGGER OPERATOR Michelle Lin MD SEND OUTS [employer] LABORATORY-CENTRAL LABORATORY [address] [place] [address], * CANDY CUTTER MACHINE THIN PREP PAP SCREEN IMAGED (05/23/2020 10:55 AM POWER DIGGER OPERATOR) Case Report Gynecologic Cytology Report ? Case: [id number] ? Authorizing Provider: ??Michelle Lin MD ??Collected: ? 05/23/2020 1055 ? Ordering Location: ? [facility] [place] ?Received: ?05/23/2020 1214 ? Clinic ? First Screen: ?Gallo Hanson ? Specimen: ?CANDY CUTTER MACHINE ThinPrep Vial Screening, Cervical ? 05/31/2020 12:20 PM POWER DIGGER OPERATOR [employer] LABORATORY-C ENTRAL LABORATORY INTERPRETATION/ RESULT NEGATIVE FOR INTRAEPITHELIAL LESION OR MALIGNANCY (NIL) (none) 05/31/2020 12:20 PM POWER DIGGER OPERATOR [facility] ENTRMT LABORATORY IMEN ADEQUACY Satisfactory for evaluation No endocervical component seen in a patient 05/31/2020 12:20 PM POWER DIGGER OPERATOR [facility]- ENTRAL LABORATORY HPV REQUEST HPV if ASCUS 05/31/2020 12:20 PM POWER DIGGER OPERATOR [facility] ENTRAL LABORATORY Date of LMP 03/04/2020 05/31/2020 12:20 PM POWER DIGGER OPERATOR [facility] ENTRAL LABORATORY Last Pap Date none 05/31/2020 12:20 PM POWER DIGGER OPERATOR [facility] ENTRAL LABORATORY Last Pap Result First Pap/Unknown 12:20 PM POWER DIGGER OPERATOR [facility] ENTRAL LABORATORY Abnormal Pap or [place] Bx in last 5 years No 05/31/2020 12:20 PM POWER DIGGER OPERATOR [facility]- ENTRAL LABORATORY Menstrual Status 05/31/2020 12:20 PM POWER DIGGER OPERATOR [facility] ENTRAL LABORATORY [place] Bx Done Today No 05/31/2020 12:20 PM POWER DIGGER OPERATOR [facility] ENTRAL LABORATORY Additional Information None given 05/31/2020 12:20 PM POWER DIGGER OPERATOR [facility] ENTRAL LABORATORY Comment: Cytology is screened at [facility], Central Laboratory - [address] [facility] [address], [place] [address] and [facility] - [address] [place] [address] and [facility] - [address] [place] [address] Interpreted at [facility] - [address] [place] [address] Automated Review Successful 05/31/2020 12:20 PM POWER DIGGER OPERATOR [facility] ENTRMT LABORATORY Comment:Specimen processed s uccessfully by automated search advertising strategist device, ThinPrep Imaging System, [employer] Note The pap test is a screening technique, not a diagnostic procedure. It is used primarily to screen for squamous cancers and precursor lesions. Published studies have shown that it is subject to both false negative and false positive results. The pap test should not be used as the sole means to diagnose or exclude pre-malignant and malignant lesions. 05/31/2020 12:20 PM POWER DIGGER OPERATOR [facility] [employer] LABORATORY-C ENTRAL LABORATORY Other (Cervical) Non-Blood / Unknown 05/23/2020 10:55 AM POWER DIGGER OPERATOR 05/23/2020 12:14 PM POWER DIGGER OPERATOR Michelle Lin MD PATHOLOGY/CYTOLO GY [facility] LABORATORY-CENTRAL LABORATORY [address] [place] [address], from Last 3 Months or Most Recently Relevant to Health Maintenance Advance Directives * Full Code (Latest Code Status on File) Date Activated Date Inactivated Comments 11/12/2021 6:04 PM 11/13/2021 7:59 PM Question Answer Comments Code Status Discussion: Reviewed Preferences * Full Code Date Activated Date Inactivated Comments 10/22/2018 2:32 PM 10/25/2018 5:10 PM Care Teams Customer Engagement Representative Relationship Specialty Start Date End Date Clinic, No Pcp Or . PCP - General 01/19/23
--- OUTSIDE RECORDS SUMMARY | 2024-01-03 11:10 | XMS_ITS | Clinical Summary ---
Author Organization [facility] Address [address], [place] [address] Care Team Providers Care Gourmet Coffee Attendant Name Role Phone Clinician, Not Found MD Primary Care Provider Un available Source Comments You are receiving this document as you are listed as the primary care provider,follow-up provider, or the patient has been referred to you for consultation.This is in compliance with the Medicare and[facility] EHR Incentive Program,which states Providers who transition [...] (1 - 2022-2 4 season) 2023 Influenza (#1) 2024 Zoster/Shingles (1 of 2) 02/26/2048 HepA [...] age to complete this topic Care Teams Gourmet Coffee Attendant Relationship Specialty Start Date End Date Clinician, Not Found, [place] [address] PCP - General 06/08/13
== END 2024-01-02 10:07 | disposition home or self-care (01) ==
LOC: NFLDREF 01-03 11:08
PROVIDERS: Visit Provider Advanced Practice Midwife
DX: R30.0 Dysuria (principal)
CPT/HCPCS: 87086

== ENCOUNTER 2024-01-06 11:43 | Outpatient (CLI) | payer BC, SELFPAY ==
--- OUTSIDE RECORDS SUMMARY | 2024-01-06 11:45 | XMS_ITS | Clinical Summary ---
Author Organization [facility] Address [address], [place] [address] Care Team Providers Care Sewing Machine Bobbin Winder Name Role Phone Clinician, Not Found MD Primary Care Provider Un available Source Comments You are receiving this document as you are listed as the primary care provider,follow-up provider, or the patient has been referred to you for consultation.This is in compliance with the Medicare and[facility] EHR Incentive Program,which states Providers who transition [...] age to complete this topic Care Teams Sewing Machine Bobbin Winder Relationship Specialty Start Date End Date Clinician, Not Found, [place] [address] PCP - General 06/08/13
--- OUTSIDE RECORDS SUMMARY | 2024-01-06 11:45 | XMS_ITS | Clinical Summary ---
Author Organization [employer] [facility] Address [place], [place] [address] Care Team Providers Care Crosscutter Rolled Glass Name Role Phone Clinic, No Pcp Or [...] 8 9 BG JULI BANUELOS Complications:None Delivery Location:[facility] ([facility]) Comments:15 min of pus aleksandra 2020 [...] ANTI HIV 1/2 Routine 05/23/2020 11:30 AM BENEFITS CONSULTANT Encounter for supervision of low-risk , antepartum ANTI HCV Routine 05/23/2020 11:30 AM BENEFITS CONSULTANT Encounter for supervision of low-risk , antepartum INTERACTIVE WEB DEVELOPER THIN PREP PAP SCREEN IMAGED Routine 05/23/2020 10:55 AM BENEFITS CONSULTANT Cervical cancer screening from Last 3 Months or Most Recently Relevant to Health Maintenance Results * ANTI HCV (05/23/2020 11:30 AM BENEFITS CONSULTANT) HEPATITIS C ANTIBODY Non-React audra Non-React audra 05/23/2020 7:27 PM BENEFITS CONSULTANT [facility] TRAL LABORATORY Comment:Antibodies to HCV no t detected; does not exclude the possibility of exposure to HCV. Blood BLOOD SPECIMEN / Unknown Venipuncture / Unknown 05/23/2020 11:30 AM BENEFITS CONSULTANT 05/23/2020 11:32 AM BENEFITS CONSULTANT Michelle Lin MD [facility] [address] [place] [address], * ANTI HIV 1/2 (05/23/2020 11:30 AM BENEFITS CONSULTANT) HIV-1/HIV-2 ANTIBODY Non-Reacti ve Non-Reacti ve 05/23/2020 7:47 PM BENEFITS CONSULTANT [facility] TRAL LABORATORY Comment:HIV-1 p24 and HIV-1/ HIV-2 Ab not detected. Blood BLOOD SPECIMEN / Unknown Venipuncture / Unknown 05/23/2020 11:30 AM BENEFITS CONSULTANT 05/23/2020 11:32 AM BENEFITS CONSULTANT Michelle Lin MD SEND OUTS [employer] LABORATORY-CENTRAL LABORATORY [address] [place] [address], * INTERACTIVE WEB DEVELOPER THIN PREP PAP SCREEN IMAGED (05/23/2020 10:55 AM BENEFITS CONSULTANT) Case Report Gynecologic Cytology Report ? Case: [id number] ? Authorizing Provider: ??Michelle Lin MD ??Collected: ? 05/23/2020 1055 ? Ordering Location: ? [facility] ?Received: ?05/23/2020 1214 ? Clinic ? First Screen: ?Gallo Hanson ? Specimen: ?INTERACTIVE WEB DEVELOPER ThinPrep Vial Screening, Cervical ? 05/31/2020 12:20 PM BENEFITS CONSULTANT [employer] LABORATORY-C ENTRAL LABORATORY INTERPRETATION/ RESULT NEGATIVE FOR INTRAEPITHELIAL LESION OR MALIGNANCY (NIL) (none) 05/31/2020 12:20 PM BENEFITS CONSULTANT [facility] ENTRTN LABORATORY IMEN ADEQUACY Satisfactory for evaluation No endocervical component seen in a patient 05/31/2020 12:20 PM BENEFITS CONSULTANT [facility]- ENTRAL LABORATORY HPV REQUEST HPV if ASCUS 05/31/2020 12:20 PM BENEFITS CONSULTANT [facility] ENTRAL LABORATORY Date of LMP 03/04/2020 05/31/2020 12:20 PM BENEFITS CONSULTANT [facility] ENTRAL LABORATORY Last Pap Date none 05/31/2020 12:20 PM BENEFITS CONSULTANT [facility] ENTRAL LABORATORY Last Pap Result First Pap/Unknown 12:20 PM BENEFITS CONSULTANT [facility] ENTRAL LABORATORY Abnormal Pap or [place] Bx in last 5 years No 05/31/2020 12:20 PM BENEFITS CONSULTANT [facility]- ENTRAL LABORATORY Menstrual Status 05/31/2020 12:20 PM BENEFITS CONSULTANT [facility] ENTRAL LABORATORY [place] Bx Done Today No 05/31/2020 12:20 PM BENEFITS CONSULTANT [facility] ENTRAL LABORATORY Additional Information None given 05/31/2020 12:20 PM BENEFITS CONSULTANT [facility] ENTRAL LABORATORY Comment: Cytology is screened at [facility], Central Laboratory - [address] [facility] [address] [address] and [facility] Laboratory - [address] [place] [address] and [facility] - [address] [place] [address] Interpreted at [facility] - [address] [place] [address] Automated Review Successful 05/31/2020 12:20 PM BENEFITS CONSULTANT [facility] ENTRTN LABORATORY Comment:Specimen processed s uccessfully by automated filter changing technician device, ThinPrep Imaging System, [employer] Note The pap test is a screening technique, not a diagnostic procedure. It is used primarily to screen for squamous cancers and precursor lesions. Published studies have shown that it is subject to both false negative and false positive results. The pap test should not be used as the sole means to diagnose or exclude pre-malignant and malignant lesions. 05/31/2020 12:20 PM BENEFITS CONSULTANT [facility] [employer] LABORATORY-C ENTRAL LABORATORY Other (Cervical) Non-Blood / Unknown 05/23/2020 10:55 AM BENEFITS CONSULTANT 05/23/2020 12:14 PM BENEFITS CONSULTANT Michelle Lin MD PATHOLOGY/CYTOLO GY [facility] LABORATORY-CENTRAL LABORATORY [address] [place] [address], from Last 3 Months or Most Recently Relevant to Health Maintenance Advance Directives * Full Code (Latest Code Status on File) Date Activated Date Inactivated Comments 11/12/2021 6:04 PM 11/13/2021 7:59 PM Question Answer Comments Code Status Discussion: Reviewed Preferences * Full Code Date Activated Date Inactivated Comments 10/22/2018 2:32 PM 10/25/2018 5:10 PM Care Teams Crosscutter Rolled Glass Relationship Specialty Start Date End Date Clinic, No Pcp Or . PCP - General 01/19/23
[2024-01-07 12:31] LABS: Strep B DNA Probe Negative (Negative)
[2024-01-07 12:39] LABS: Strep B Susceptibility Needed? No
== END 2024-01-06 11:44 | disposition home or self-care (01) ==
PROVIDERS: Visit Provider Advanced Practice Midwife
DX: Z34.83 Encounter for supervision of other normal pregnancy, third trimester (principal)
CPT/HCPCS: 87081; 87653

== ENCOUNTER 2024-01-22 07:57 | Inpatient (IN) | payer BC, SELFPAY ==
[2024-01-22] VITALS (14 sets, daily range): BP systolic 95–130; BP diastolic 58–79; PULSE 67–98; RESP 12–16; TEMP 36.6–37.1; O2SAT 96–98; BMI 30.9
--- OUTSIDE RECORDS SUMMARY | 2024-01-22 07:39 | XMS_ITS | Clinical Summary ---
Author Organization [facility] Address [address] [place] [address] Care Team Providers Care Investigation Division Lieutenant Name Role Phone Clinician, Not Found MD Primary Care Provider Un available Source Comments You are receiving this document as you are listed as the primary care provider,follow-up provider, or the patient has been referred to you for consultation.This is in compliance with the Medicare and[facility] E[facility] Incentive Program,which states Providers who [...] COVID-19 Vaccine (1 - 2022-2 4 season) 2024 Influenza (#1) 2024 Zoster/Shingles (1 of 2) [...] age to complete this topic Care Teams Investigation Division Lieutenant Relationship Specialty Start Date End Date Clinician, Not Found, [place] [address] PCP - General 06/08/13
--- OUTSIDE RECORDS SUMMARY | 2024-01-22 07:39 | XMS_ITS | Clinical Summary ---
Author Organization [employer] [facility] Address [place], [place] [address] Care Team Providers Care Dough Mixing Machine Operator Name Role Phone Clinic, No Pcp Or [...] 8 9 BG JULI BANUELOS Complications:None Delivery Location:[facility] ([facility]) Comments:15 min of pus aleksandra 2020 Term [...] day) for age 18+ 03/15/2022 03/15/2021, 05/23/2020 Pap test for age 21-65 05/23/2023 05/23/2020 COVID-19 vaccine series ( season) 2024 Influenza for age 9-49 01/19/2024 8, 04/30/2018, [...] ANTI HIV 1/2 Routine 05/23/2020 11:30 AM BOOSTER OPERATOR Encounter for supervision of low-risk , antepartum ANTI HCV Routine 05/23/2020 11:30 AM BOOSTER OPERATOR Encounter for supervision of low-risk , antepartum DELICATESSEN DEPARTMENT MANAGER THIN PREP PAP SCREEN IMAGED Routine 05/23/2020 10:55 AM BOOSTER OPERATOR Cervical cancer screening from Last 3 Months or Most Recently Relevant to Health Maintenance Results * ANTI HCV (05/23/2020 11:30 AM BOOSTER OPERATOR) HEPATITIS C ANTIBODY Non-React audra Non-React audra 05/23/2020 7:27 PM BOOSTER OPERATOR [facility] TRAL LABORATORY Comment:Antibodies to HCV no t detected; does not exclude the possibility of exposure to HCV. Blood BLOOD SPECIMEN / Unknown Venipuncture / Unknown 05/23/2020 11:30 AM BOOSTER OPERATOR 05/23/2020 11:32 AM BOOSTER OPERATOR Michelle Lin MD [facility] [address] [place] [address], * ANTI HIV 1/2 (05/23/2020 11:30 AM BOOSTER OPERATOR) HIV-1/HIV-2 ANTIBODY Non-Reacti ve Non-Reacti ve 05/23/2020 7:47 PM BOOSTER OPERATOR [facility] TRAL LABORATORY Comment:HIV-1 p24 and HIV-1/ HIV-2 Ab not detected. Blood BLOOD SPECIMEN / Unknown Venipuncture / Unknown 05/23/2020 11:30 AM BOOSTER OPERATOR 05/23/2020 11:32 AM BOOSTER OPERATOR Michelle Lin MD SEND OUTS [employer] LABORATORY-CENTRAL LABORATORY [address] [place] [address], * DELICATESSEN DEPARTMENT MANAGER THIN PREP PAP SCREEN IMAGED (05/23/2020 10:55 AM BOOSTER OPERATOR) Case Report Gynecologic Cytology Report ? Case: [id number] ? Authorizing Provider: ??Michelle Lin MD ??Collected: ? 05/23/2020 1055 ? Ordering Location: ? [facility] ?Received: ?05/23/2020 1214 ? Clinic ? First Screen: ?Gallo Hanson ? Specimen: ?DELICATESSEN DEPARTMENT MANAGER ThinPrep Vial Screening, Cervical ? 05/31/2020 12:20 PM BOOSTER OPERATOR [employer] LABORATORY-C ENTRAL LABORATORY INTERPRETATION/ RESULT NEGATIVE FOR INTRAEPITHELIAL LESION OR MALIGNANCY (NIL) (none) 05/31/2020 12:20 PM BOOSTER OPERATOR [facility] ENTRNC LABORATORY IMEN ADEQUACY Satisfactory for evaluation No endocervical component seen in a patient 05/31/2020 12:20 PM BOOSTER OPERATOR [facility]- ENTRAL LABORATORY HPV REQUEST HPV if ASCUS 05/31/2020 12:20 PM BOOSTER OPERATOR [facility] ENTRAL LABORATORY Date of LMP 03/04/2020 05/31/2020 12:20 PM BOOSTER OPERATOR [facility] ENTRAL LABORATORY Last Pap Date none 05/31/2020 12:20 PM BOOSTER OPERATOR [facility] ENTRAL LABORATORY Last Pap Result First Pap/Unknown 12:20 PM BOOSTER OPERATOR [facility] ENTRAL LABORATORY Abnormal Pap or [place] Bx in last 5 years No 05/31/2020 12:20 PM BOOSTER OPERATOR [facility]- ENTRAL LABORATORY Menstrual Status 05/31/2020 12:20 PM BOOSTER OPERATOR [facility] ENTRAL LABORATORY [place] Bx Done Today No 05/31/2020 12:20 PM BOOSTER OPERATOR [facility] ENTRAL LABORATORY Additional Information None given 05/31/2020 12:20 PM BOOSTER OPERATOR [facility] ENTRAL LABORATORY Comment: Cytology is screened at [facility], Central Laboratory - [address] [facility] [address], [place] [address] and [facility] - [address] [place] [address] and [facility] - [address] [place] [address] Interpreted at [facility] - [address] [place] [address] Automated Review Successful 05/31/2020 12:20 PM BOOSTER OPERATOR [facility] ENTRNC LABORATORY Comment:Specimen processed s uccessfully by automated store deli manager device, ThinPrep Imaging System, [employer] Note The pap test is a screening technique, not a diagnostic procedure. It is used primarily to screen for squamous cancers and precursor lesions. Published studies have shown that it is subject to both false negative and false positive results. The pap test should not be used as the sole means to diagnose or exclude pre-malignant and malignant lesions. 05/31/2020 12:20 PM BOOSTER OPERATOR [facility] [employer] LABORATORY-C ENTRAL LABORATORY Other (Cervical) Non-Blood / Unknown 05/23/2020 10:55 AM BOOSTER OPERATOR 05/23/2020 12:14 PM BOOSTER OPERATOR Michelle Lin MD PATHOLOGY/CYTOLO GY [facility] LABORATORY-CENTRAL LABORATORY [address] [place] [address], from Last 3 Months or Most Recently Relevant to Health Maintenance Advance Directives * Full Code (Latest Code Status on File) Date Activated Date Inactivated Comments 11/12/2021 6:04 PM 11/13/2021 7:59 PM Question Answer Comments Code Status Discussion: Reviewed Preferences * Full Code Date Activated Date Inactivated Comments 10/22/2018 2:32 PM 10/25/2018 5:10 PM Care Teams Dough Mixing Machine Operator Relationship Specialty Start Date End Date Clinic, No Pcp Or . PCP - General 01/19/23
--- NOTE | 2024-01-22 07:59 | W.PM.LDBA ---
Subjective History of Present Illness Date Seen: 01/22/24 Narrative: Gloria is a at 39 3/7 weeks gestation being admitted to Labor and Delivery for spontaneous onset of labor. She reports her contractions started last evening. Initially she was able to sleep through them but then around 4 she noticed they were getting closer. Then around 6 am they increased in intensity and were more regular. She denies any leaking of fluid or bleeding. She is supported in labor by her partner, Jonathan. She was seen yesterday in clinic and had a cervical exam then, /2. Her full history and physical was dictated by Maribel Fuentes CNM on 01/06/2024. Please see this for details. Specific Issues/Plans G 4 P 3 H&P done by Maribel Fuentes CNM on 01/06/24 1. Hx low platelets in last . 208 at NOB. 2. Close spaced (10 months) 3. Varicella nonimmune recommend PP vaccine consider at 2 week 4. Rh negative blood type Rhogam recommended at 28 weeks: given 11/05 Unaware of partner BT but has received rhogam in previous births 5. Vulvar/lower extremity varicosities Recommended v-support Doppler of leg due to pain: negative 11/19 Needs pap PP COVID: declined Flu: declined TDAP: declined OB - Problem Based A/P Additional Plan (1) Pain during labor: Status: Acute (2) Rh negative status during : Status: Acute (3) 39 weeks gestation of : Status: Acute (4) Spontaneous onset of labor: Status: Acute Plan ASSESSMENT:? 23 yo at 39 3/7 weeks gestation? complicated by:?Hx of low platelets in previous , Closely spaced , varicella non-immune, Rh negative (A-) blood type, vulvar/lower extremity varicosities Labor type: Spontaneous, Active labor? Category 1 FHR pattern.?? Labor complicated by: none? GBS negative? ? PLAN:? 1. Routine intrapartum cares as ordered. Continue with expectant management? 2. Monitoring per policy, intermittent? 3. Planning unmedicated . Desires water . Consent signed. Hep C negative. Candidate for analgesia of choice, if desired.?? 4. Patient encouraged to reposition and ambulate to promote physiologic labor and .? 5. Anticipate ? Delivery/Labor/Induction Plan Plan: expectant management OB Result Labs Blood Type: A (-) negative GBS Status: negative OB Exam Physical Exam Vital signs: Temp Pulse Resp BP Pulse Ox 97.9 F 87 16 128/79 98 01/22/24 07:45 01/22/24 07:45 01/22/24 07:45 01/22/24 07:45 01/22/24 07:50 Narrative: Vitals Reviewed Constitutional:? Alert and oriented x3 HEENT:? Normocephalic, atraumatic Neck:? Supple Lungs:? Clear to auscultation bilaterally Heart:? Regular rate and rhythm, no murmur, rub or gallop Abdomen:? Soft, nontender, and gravid. Vertex by Todd's, confirmed with cervical exam. Extremities:? No edema or erythema Cervix: 7 cm/70%/0 station/vertex, cervix on right side NST: 135 bpm/moderate variability/15x15 accelerations/no decelerations/contractions every 3-5 minutes Detailed Labor and Delivery Exam Patient Gravid: Yes
--- NOTE | 2024-01-22 13:36 | W.PM.VAGDE_ITS ---
OB Procedure Vag Delivery Mother Details Mother Details: The patient is a 23 year-old, 4, now Para 4, admitted on 01/22/24 at 39 3/7 weeks gestation. : 4 Para: 4 Weeks Gestation: 39.3 Admission Date: 01/22/24 Additional Details Amniotic Membrane Status: SROM Amniotic Membrane Rupture Date: 01/22/24 Amniotic Membrane Rupture Time: 11:12 Amniotic Membrane Fluid Description: Clear Analgesia/Anesthesia Type: None Waterbirth: Yes Pitcoin: No (Pt declined, aware if she has any gushes it would be recommended) Intrapartal Events: None Labor Onset: 04:00 Complete: 12:03 Pushin:03 Heart: heart tones during second stage were intermittently monitored and remained reassuring throughout. Delivery Details Delivery Date: 01/22/24 Delivery Time: 13:04 Route of delivery: Gender: Male Infant Viability: Alive; Heart Rate Present Position at Delivery: OA Delivery Details: Patient was admitted for spontaneous onset of labor and progressed normally. SROM occurred at 1112 with clear fluid. She labored while ambulating in the room, standing/squating by the bed, and in the tub. She was assumed complete with pushing at 1203. of a viable male at 1304 squatting in the tub. Vertex delivered OA. No nuchal cord or shoulder. Body delivered easily and without incident. Infant passed to mothers abdomen with a vigorous cry. Cord was clamped and cut at > 5 minutes. APGARS were 8 at one minute and 9 at five minutes res pectively. Mouth was bulb suctioned. Intact placenta with a 3 vessel cord delivered spontaneously at 1323. Fundus firm. Intact perineum identified. QBL 500 cc (300 QBL and 200 EBL from tub). Mother and baby stable; mother plans to breastfeed. Infant weight 10lb 2oz. 1 Minute Interval Total Score: 8 5 Minute Interval Total Score: 9 Additional Details Shoulder Dystocia: No Placenta Delivery Time: 13:23 Placental Delivery Description: Spontaneous Delivery repair: Vicryl Procedure Done: Global Blood Loss: 500 Laceration: None Blood Loss Measurement Type: QBL Bakri Used: No Sponge/Need Count Correct: Yes Cord Vessel Description: 3 Vessels Event Summary Status: Mother and infant were stable after delivery. Disposition: floor
[2024-01-22] MEDS: IBUPROFEN 600 MG TABLET PO ×2 (15:09→21:12)
[2024-01-22] MEDS: ACETAMINOPHEN 500 MG TABLET 1000 MG PO ×2 (16:56→22:39)
[2024-01-23 02:12] VITALS: BP 108/62; PULSE 75; RESP 16; TEMP 36.7; O2SAT 98
[2024-01-23 06:07] VITALS: BP 103/65; PULSE 77; RESP 16; TEMP 36.7; O2SAT 98
--- NOTE | 2024-01-23 07:46 | PM.OBDSVD1 ---
DS: Providers Provider Date Seen: 01/23/24 Date of admission: 01/22/24 07:57 Primary care physician: Not a Local Provider Admitting Clinician: Caroline Hansen CNM Attending Physician on discharge: Caroline Hansen CNM Date of Discharge: 01/23/24 DS: Diagnosis Discharge Diagnosis (1) care following vaginal delivery: Status: Acute (2) Lactating mother: Status: Acute (3) Rh negative status during : Status: Acute Exam Narrative: Exam Narrative: GENERAL APPEARANCE:? normal affect, alert, no distress? MOOD:? appropriate? CHEST:? clear to auscultation and percussion? HEART:? regular rate and rhythm? ABDOMEN:? soft, non-tender the uterine fundus is U/2 and is appropriate for the stage of recovery.? PERINEUM:? mild edema of the perineum, there is a intact perineum that is healing well.? EXTREMITIES:? normal and no edema? Const: Vital Signs, click to edit/add: Vital Signs - 24 hr 01/22/24 07:50 01/22/24 09:14 01/22/24 09:14 Temperature 98 F Pulse Rate 92 Pulse Rate [Pulse Oximeter] Respiratory Rate 16 Blood Pressure 108/58 L Blood Pressure [Le ft Arm] Pulse Oximetry 98 98 Oxygen Delivery [facility] 01/22/24 11:15 01/22/24 13:25 01/22/24 13:25 Temperature 98.4 F 98.4 F Pulse Rate 85 Pulse Rate [Pulse Oximeter] Respiratory Rate 16 Blood Pressure 120/66 Blood Pressure [Le ft Arm] Pulse Oximetry Oxygen Delivery [facility] 01/22/24 13:40 01/22/24 13:54 01/22/24 14:13 Temperature Pulse Rate 77 67 75 Pulse Rate [Pulse Oximeter] Respiratory Rate Blood Pressure 110/59 L 112/58 L 130/64 Blood Pressure [Le ft Arm] Pulse Oximetry Oxygen Delivery [facility] 01/22/24 14:24 01/22/24 14:39 01/22/24 14:54 Temperature Pulse Rate 76 75 81 Pulse Rate [Pulse Oximeter] Respiratory Rate Blood Pressure 113/60 112/70 112/63 Blood Pressure [Le ft Arm] Pulse Oximetry Oxygen Delivery [facility] 01/22/24 15:09 01/22/24 16:53 01/22/24 21:15 Temperature 98.7 F 98.6 F Pulse Rate 85 Pulse Rate [Pulse Oximeter] 88 89 Respiratory Rate 12 16 Blood Pressure 115/61 Blood Pressure [Le ft Arm] 100/64 95/60 Pulse Oximetry 96 97 Oxygen Delivery Me thod Room Air Room Air 01/23/24 02:12 01/23/24 06:07 Temperature 98.0 F 98.0 F Pulse Rate Pulse Rate [Pulse Oximeter] 75 77 Respiratory Rate 16 16 Blood Pressure Blood Pressure [Le ft Arm] 108/62 103/65 Pulse Oximetry 98 98 Oxygen Delivery Me thod Room Air Room Air OB - DS: Summary Hospital Course Hospital Course: Gloria is a 23 year old G 4 P 4 at 39.3 weeks gestation that was admitted to the Center on 01/22/24 for active labor at term. She had an uncomplicated vaginal delivery. She delivered a viable male infant. She is breast feeding and denies complications or concerns with how it is going. the patient has done well. Her pain is well controlled with current medications.? She has no new complaints.? Urinary output is adequate and she is voiding without difficulty.? Has a good appetite, is tolerating a general diet, is passing flatus, and has not had a bowel movement.? Has small amount of rubra lochia.? She is ambulating well. She is unsure what she is planning for contraception but would like to avoid hormones. She will probably use condoms and NFP. Peripartum Data delivery method: Vaginal Laceration description: None Episiotomy description: None complications: none Gender: Male Discharge Plan: Home Status at Discharge Functional status at discharge: independent ambulation Overall status at discharge: patient is progressing back to baseline Time Spent with Patient Time attestation: Total time spent providing and/or coordinating discharge services: Discharge Plan Discharge Disposition: Home, Self-Care Date of Admission: 01/22/24 07:57 Attending Provider on Discharge: Kandis Welsh Primary Care Provider: Provider,Not a Local Condition: Stable Anticipated Discharge Date/Time: 01/23/24 15:00 Discharge Medications: New docusate sodium 100 mg Capsule 100 mg PO DAILY Qty: 90 0RF ibuprofen 600 mg Tablet 600 mg PO Q6H PRNQty: 30 0RF Continued Classic 28 mg iron- 800 mcg tablet 1 tab PO DAILY Discharge Orders: Discharge Order (Routine); Ordered 01/23/24 Ordered By: Kandis Welsh Patient Education: OB Vaginal/Breast Feeding Additional Instructions: Discharge instructions were reviewed with the patient including signs and symptoms of infection and home going medications.? Lifting Restrictions: 20 pounds for 6? weeks? ?? Do not drive while taking narcotic pain meds.? Off Work or School for 6 weeks.? ?? Symptoms to report to doctor:? -Bleeding that saturates more than one pad per hour? -Passing clots larger than the size of a golf ball? -Pain not relieved by prescribed medication? -Fever above 100.4 degrees Fahrenheit? -A foul vaginal odor? -Difficulty in emotions, mood and functions? -Thoughts of hurting yourself and/or ? -Painful, reddened area in your breast? -Any drainage, redness or tenderness in your IV/epidural site? -Severe headache that doesn't improve after taking medications? -Changes in vision, including temporary loss of vision, blurred vision, and/or light sensitivity? -Upper abdominal pain (usually under ribs on the right side)? -Decrease in urination or painful, frequent urinating? -Chest pain? -Shortness of breath? -Tenderness or pain with redness and/swelling in the calf(s) of your leg? ?? Follow Up in clinic in 2 and 6 weeks.? ?? consultation services are available to all mothers and babies for the first year after delivery.? To make an appointment, please call [phone].? Activity Level: Activity as Tolerated Discharge Diet: Regular Follow Up Appointments: Provider,Not a Local [Primary Care Provider] - [facility] [Provider Group] Forms: [employer] Info Instructions
[2024-01-23 08:42] VITALS: BP 104/65; PULSE 82; RESP 16; TEMP 37.1; O2SAT 98
[2024-01-23 13:39] VITALS: BP 100/66; PULSE 75; RESP 16; O2SAT 98
== END 2024-01-23 16:30 | disposition home or self-care (01) | DRG 560 ==
LOC: OB OUT 07:57 → OB 07:57
PROVIDERS: Admitting Provider Advanced Practice Midwife; Visit Provider Advanced Practice Midwife
DX: O26.893 Other specified pregnancy related conditions, third trimester (principal); Z67.11 Type A blood, Rh negative; O22.13 Genital varices in pregnancy, third trimester; O22.03 Varicose veins of lower extremity in pregnancy, third trimester; Z37.0 Single live birth; Z3A.39 39 weeks gestation of pregnancy
CPT/HCPCS: 36415; 85461; A9270; J2791